=== PATIENT | male | born 1945 | race Caucasian/White ===

== ENCOUNTER 2018-05-05 09:04 | Emergency (ER) | payer OTHER ==
[2018-05-05 09:38] LABS: Absolute Lymphocytes (CBC) 0.9 K/uL (0.7-4.9); Absolute Monocytes 0.5 K/uL (0.1-1.3); Absolute Neutrophil 3.6 K/uL (1.8-8.0); Basophils % 0.9 % (0-1.3); Eosinophils % 4.5 % (0-4.4); Hematocrit 35.1 % (39.6-49.0); Lymphocytes % 16.7 % (15.3-44.8); MCH 32.1 pg (27.0-35.0); MCV 92.2 fL (80-100); MPV 7.5 fL (7.6-11.3); Monocytes % 9.8 % (3.3-12.3)
--- OUTSIDE RECORDS SUMMARY | 2018-05-05 09:45 | XMS REPORT | Clinical Summary ---
:1945 Author Organization [facility] Address [address] [place] [address] Phone Care Team Providers Name Role Phone Unavailable Primary Care Provider Unavailable Allergies No Known Allergies Current Medications Prescription Sig. Disp. Refills Start Date End Date Status cyanocobalamin Inject 1,000 mcg Active (VITAMIN B-12) 1,000 intramuscularly every mcg/mL injection 14 (fourteen) days. losartan (COZAAR) 50 Take 50 mg by mouth Active MG tablet daily. sertraline (ZOLOFT) Take 100 mg by mouth Active 100 MG tablet daily. predniSONE (DELTASONE) Take by mouth daily. Active 10 mg tablet pack Active Problems Not on file Social History Tobacco Use Types Packs/Day Years Used Date Former Smoker 2 4 Smokeless Tobacco: Never Used Comments: QUIT 1973 Alcohol Use Drinks/Week oz/Week Comments Yes 2 Shots of liquor 1.2 Sex Assigned at Date Recorded Not on file Last Filed Vital Signs Not on file Plan of Treatment Not on file Implants Implanted Type Area Senior Education Specialist Device Expiration Model / Identifier Date Serial / Lot Hemostat,[employer] - [id number] Cement/F N/A: [place] 03/12/[id number] / Implanted: Qty: 1 on 09/14/2015 by Brooks Martel MD [employer] / hesive [id number] Results Not on fileafter 05/04/2017
--- NOTE | 2018-05-05 09:46 | RAD REPORT ---
EXAM DESCRIPTION: CT - Head Brain Wo Cont - 05/05/2018 9:38 am CLINICAL HISTORY: Right arm numbness COMPARISON: None. TECHNIQUE: Computed axial tomography of the head was obtained. IV contrast was not requested. All CT scans are performed using dose optimization technique as appropriate and may include automated exposure control or mA/KV adjustment according to patient size. FINDINGS: An intracranial bleed is not seen . The ventricles are normal in caliber. No extra-axial fluid collection is noted. Marked opacification of the ethmoid and frontal sinus is present. IMPRESSION: No acute intracranial abnormality is seen. If patient's symptoms persist MRI of the bra in would be recommended. Marked ethmoid and frontal sinusitis. I suspect it is a combination of acute and chronic.
[2018-05-05 09:50] LABS: Protime INR 1.05
[2018-05-05 10:25] LABS: Urine Blood NEGATIVE (NEG); Urine Glucose NEGATIVE (NEG); Urine Protein NEGATIVE (NEG); Urine Specific Gravity <1.005 (1.005-1.030); Urine pH 5.5 (5.0-7.0)
[2018-05-05] MEDS ORDERED: NA CHLORIDE 0.9% 500 ML ONE (10:39)
--- NOTE | 2018-05-05 11:27 | RAD REPORT ---
EXAM DESCRIPTION: VASCarotid Artery Bilateral05/05/2018 11:11 am CLINICAL HISTORY: Numbness COMPARISON: None FINDINGS: The velocity of the right internal carotid artery equals 84 cm/sec. The right ICA/CCA rati o 0.7 The velocity of the left internal carotid artery equals 87 cm/sec. The left ICA/CCA ratio point Mild plaque is present within the carotid arteries. The vertebral arteries demonstrate antegrade flow IMPRESSION: Mild plaque within the carotid arteries without evidence of a hemodynamically significan t stenosis
--- NOTE | 2018-05-05 12:12 | EKG ---
Test Date: 2018-05-05 Test Time: 09:42:11 [place] Topper: [place] MEASUREMENT RESULTS: Intervals: Rate: 54 TX: 184 QRSD: 100 QT: 430 QTc: 407 [place]: P: 55 TX: 184 QRS: 9 T: 43 INTERPRETIVE STATEMENTS: Sinus bradycardia Otherwise normal ECG No previous ECG available for comparison Electronically Signed On 05-05-18 12:11:41 CDT by Naveed Bethea
--- NOTE | 2018-05-05 12:23 | RAD REPORT ---
EXAM DESCRIPTION: MRI - Brain Wo Cont - 05/05/2018 12:08 pm CLINICAL HISTORY: Stroke-like symptoms, right-sided numbness COMPARISON: CT head same date TECHNIQUE: Sagittal T1-weighted images were obtained along with axial PD, heavily T2-weighted and T2 -FLAIR images. Axial DWI and ADC mapping sequences were also obtained along with coronal heavily T2-w eighted images. FINDINGS: No intracranial hemorrhage, mass or acute infarction. There is no edema or shift of midlin e structures. Slightly greater CSF over the left cerebral convexity is believed to be due to slight d ifferences in volume loss. Brown-matter/white matter junction is preserved. Signal voids are seen as a normal finding in the major intracranial vessels. Patient has little or no chronic ischemic signal i n the white matter. Atrophy changes are mild. Ventricular size is in proportion. No globe or orbital content abnormality. No sella or supra sella abnormality. Mastoid air cells are clear. Extensive mucosal thickening throughout the frontal and ethmoid sinuses. Left maxillary mucosal thickening is present. No air-fluid level. IMPRESSION: No acute infarction change. No hemorrhage, mass or acute intracranial finding. Atrophy changes are mild with little or no chronic ischemic change identifiable. Extensive chronic sinusitis changes in the frontal and ethmoid air cells.
--- NOTE | 2018-05-05 12:59 | ER ---
Nurse's Notes [facility] Name: Carl Richmond Age: 72 yrs Sex: Male : 1945 Arrival Date: 05/05/2018 Time: 09:08 Bed 14 Private MD: Out, [facility] Diagnosis: Paresthesia of skin Presentation: 05/05 09:12 Presenting complaint: Patient states: Right arm numbness with neck discomfort that aj started at 0815 this AM. Patient ambulated with steady gait in NAD. Speech is clear. Transition of care: patient was not received from another setting of care. Onset of symptoms was May 05, 2018 at 08:15. Risk Assessment: Do you want to hurt yourself or someone else? Patient reports no desire to harm self or others. Initial Sepsis Screen: Does the patient meet any 2 criteria? No. Patient's initial sepsis screen is negative. Does the patient have a suspected source of infection? No. Patient's initial sepsis screen is negative. Care prior to arrival: None. 09:12 Method Of Arrival: Ambulatory 09:12 Acuity: BEBETO 3 aj Triage Assessment: 09:13 General: Appears in no apparent distress. comfortable, Behavior is calm, cooperative, aj appropriate for age. Pain: Complains of pain in back of neck. Neuro: Level of Consciousness is awake, alert, obeys commands, Oriented to person, place, time, situation, Appropriate for age. Respiratory: Airway is patent Respiratory effort is even, unlabored, Respiratory pattern is regular, symmetrical. Derm: Skin is intact, is healthy with good turgor, Skin is pink, warm \\T\\ dry. normal. Musculoskeletal: Reports numbness in right elbow, right wrist and palmar aspect of right forearm. Historical: - Allergies: 09:13 No Known Allergies; aj - PMHx: 09:13 Hypertension; Atrial Fib; aj - Immunization history:: Adult Immunizations up to date. - Social history:: Smoking status: Patient/guardian denies using tobacco. - Ebola Screening: : Patient negative for fever greater than or equal to 101.5 degrees Fahrenheit, and additional compatible Ebola Virus Disease symptoms Patient denies exposure to infectious person Patient denies travel to an Ebola-affected area in the 21 days before illness onset No symptoms or risks identified at this time. - Family history:: not pertinent. - Hospitalizations: : No recent hospitalization is reported. Screenin:45 Abuse screen: Denies threats or abuse. Denies injuries from another. Nutritional ss screening: No deficits noted. Tuberculosis screening: Never had TB. Patient has been NPO before screening. The patient is alert, able to follow commands. The patient exhibits slurred or garbled speech. The patient is not exhibiting difficulty speaking. The patient does not exhibit difficulty understanding words. The patient is able to swallow own secretions with no drooling or need for suction. Patient tolerated one teaspoon of water. No drooling, immediate coughing, gurgling, or clearing of the throat was noted. The patient tolerated 90mL of water. No drooling, immediate coughing, gurgling, or clearing of the throat was noted. The patient passed the bedside swallow screening. Oral medications may be given as ordered. Contact Physician for further diet orders. Fall Risk None identified. Assessment: 09:45 General: Pt back from CT, reports numbness in R arm resolved completely on arrival to ER. Pain: Complains of pain in left mid cervical area and left trapezius Pain currently is 7 out of 10 on a pain scale. Quality of pain is described as "twinge" Pain began "a few months ago" Is continuous, Aggravated by turning head side to side. Neuro: Level of Consciousness is awake, alert, obeys commands, Oriented to person, place, time, situation. Neuro: Reports numbness to R arm that began at 0815 today and resolved upon arrival to ER.. Denies blurred vision dizziness, difficulty swallowing, headache photophobia. Cardiovascular: Capillary refill < 3 seconds is brisk in bilateral fingers. Respiratory: Airway is patent Respiratory effort is even, unlabored, Respiratory pattern is regular, symmetrical. GI: Abdomen is non-distended, Patient currently denies diarrhea, nausea, vomiting. : No signs and/or symptoms were reported regarding the genitourinary system. EENT: Nares are clear Oral mucosa is moist. Throat is clear. Derm: Skin is intact, is healthy with good turgor, Skin is dry, Skin is pink, warm \\T\\ dry. normal. Musculoskeletal: Circulation, motion, and sensation intact. Capillary refill < 3 seconds, is brisk, in bilateral fingers. Range of motion: intact in all extremities, Swelling absent Reports pain to L side of neck x months that patient reports has seemed worse since yesterday. 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 10:43 Reassessment: Patient appears in no apparent distress at this time. Patient and/or rb1 family updated on plan of care and expected duration. Pain level reassessed. Patient is alert, oriented x 3, equal unlabored respirations, skin warm/dry/pink. 11:41 Reassessment: Patient appears in no apparent distress at this time. No changes from rb1 previously documented assessment. Pt. went to MRI. 12:39 Reassessment: Patient appears in no apparent distress at this time. Patient and/or rb1 family updated on plan of care and expected duration. Pain level reassessed. Patient is alert, oriented x 3, equal unlabored respirations, skin warm/dry/pink. Pt. went to X-ray. 13:18 Reassessment: Patient appears in no apparent distress at this time. No changes from rb1 previously documented assessment. Discharge pending, pt. is waiting for test results to be put on a CD. Vital Signs: 09:13 BP 189 / 73; Pulse 66; Resp 19; Temp 98.4; Pulse Ox 100% on R/A; Weight 83.91 kg; aj Height 6 ft. 0 in. (182.88 cm) (R); 09:27 Temp 98.0(O); rb1 10:00 BP 140 / 78; Pulse 55; Resp 13; Pulse Ox 99% on R/A; rb1 11:00 BP 150 / 79; Pulse 54; Resp 21 S; Pulse Ox 98% on R/A; rb1 11:30 BP 125 / 85; Pulse 51; Resp 20; Pulse Ox 98% on R/A; rb1 12:30 BP 132 / 79; Pulse 53; Resp 19; Pulse Ox 99% on R/A; rb1 13:18 BP 133 / 82; Pulse 56; Resp 19; Pulse Ox 99% on R/A; rb1 09:13 Body Mass Index 25.09 (83.91 kg, 182.88 cm) aj NIH Stroke Scale Scores: 09:45 NIHSS Score: 0 ss ED Course: 09:08 Patient arrived in ED. sb2 09:09 Out, [facility] is Private Physician. sb2 09:11 Tylor Mcclellan MD is Attending Physician. rn 09:13 Triage completed. aj 09:13 Arm band placed on right wrist. Patient placed in an exam room. aj 09:15 Patient Physician notified of patient complaint, nurse requested immediate evaluation. aj 09:[address] sw 09:36 CT completed. Patient tolerated procedure well. Patient moved back from CT. sw 09:36 Troponin (emerg Dept Use Only) Sent. ag 09:36 Basic Metabolic Panel Sent. ag 09:36 CBC with Diff Sent. ag 09:36 Ptt, Activated Sent. ag 09:37 CT Head Brain wo Cont In Process Unspecified. EDMS 09:37 Inserted saline lock: 20 gauge in left antecubital area, using aseptic technique. Blood ag collected. 09:40 Nae Mckoy RN is Primary Nurse. ss 09:45 Patient has correct armband on for positive identification. Bed in low position. Call ss light in reach. Side rails up X2. environmental monitoring technician on. Pulse ox on. NIBP on. 09:45 Patient maintains SpO2 saturation greater than 95% on room air. ss 09:57 EKG done, by artificial breeding technician. reviewed by Tylor Mcclellan MD. at1 11:11 Carotid Artery Bilateral US In Process Unspecified. EDMS 11:11 Ultrasound completed. Patient tolerated well. aa4 11:57 Patient moved to MRI via wheelchair. lc 12:01 MRI - Brain Wo Cont In Process Unspecified. EDMS 12:22 MRI completed. Patient tolerated well. Patient moved back from MRI. em2 12:49 X-ray completed. Patient tolerated procedure well. Patient moved back from radiology. jb2 12:50 XRAY C Spine Ap/lat In Process Unspecified. EDMS 13:30 No provider procedures requiring assistance completed. IV discontinued, intact, rb1 bleeding controlled, No redness/swelling at site. Pressure dressing applied. Administered Medications: 10:38 Drug: NS 0.9% 500 ml Route: IV; Rate: bolus; Site: left antecubital; rb1 11:15 Follow up: IV Status: Completed infusion rb1 Point of Care Testing: Blood Glucose: 09:44 Blood Glucose: 111 mg/dL; ss Ranges: Outcome: 12:58 Discharge ordered by . rn 13:30 Patient left the ED. rb1 13:30 Discharged to home ambulatory. rb1 13:30 Condition: stable 13:30 Discharge instructions given to patient, Instructed on discharge instructions, follow up and referral plans. Demonstrated understanding of instructions, follow-up care, Prescriptions given X none NIH Stroke Scale - NIH Stroke Score Date: 05/05/2018 Time: 09:45 Total Score = 0 1a. Level of Consciousness (LOC) - 0(Alert) 1b. Level of Consciousness (LOC) (Year \\T\\ Age) - 0(Both) 1c. LOC Commands (Open \\T\\ Closes Eyes/Right Of Way Agent) - 0(Both) 2. Best Gaze (Lateral Gaze Paresis) - 0(Normal) 3. Visual Field Loss - 0(No visual loss) 4. Facial Palsy - 0(Normal) 5a. Left Arm: Motor (10-second hold) - 0(No drift) 5b. Right Arm: Motor (10-second hold) - 0(No drift) 6a. Left Leg: Motor (5-second hold - always test supine) - 0(No drift) 6b. Right Leg: Motor (5-second hold - always test supine) - 0(No drift) 7. Limb Ataxia (finger/nose \\T\\ heel/[place] - test with eyes open) - 0(Absent) 8. Sensory Loss (pinprick arms/legs/face) - 0(Normal) 9. Best Language: Aphasia (description/naming/reading) - 0(No aphasia) 10. Dysarthria (speech clarity - read or repeat words) - 0(Normal) 11. Extinction and Inattention (visual/tactile/auditory/spatial/personal) - 0(No abnormality) Initials: Signatures: Dispatcher [employer] EDNC Allison Sahu RN RN aj Buechter, Jesse jb2 Lois Tobar Amanda aa4 Tylor Mcclellan MD MD rn Smirch, Shelby, RN RN ss Montes, Enrique em2 Allison mosquera, c java developer EKG Tat1 Yajaira Anderson Shannon sw Barber, Rebecca, RN RN rb1 Karmen Huff2 Corrections: (The following items were deleted from the chart) 09:37 09:37 Inserted saline lock: 20 gauge in left antecubital area, using aseptic ag technique. ag 11:42 11:41 Reassessment: Pt. went to MRI rb1 rb1 13:38 13:36 Patient left the ED. rb1 rb1
--- NOTE | 2018-05-05 12:59 | EDPHYS ---
Physician Documentation [facility] Name: Carl Richmond Age: 72 yrs Sex: Male : 1945 Arrival Date: 05/05/2018 Time: 09:08 Bed 14 Private MD: Out, [facility] ED Physician Tylor Mcclellan HPI: 05/05 10:21 This 72 yrs old Male presents to ER via Ambulatory with complaints of rn Numbness Of Arm. 10:21 The patient's problem is reported as paresthesias. Onset: The symptoms/episode rn began/occurred at 08:15. Duration: This was a single incident. Context: symptoms became apparent. Severity of symptoms: At their worst the symptoms were mild in the emergency department the symptoms have resolved. The patient has not experienced similar symptoms in the past. Reports at work, walking, noticed right hand fell asleep, no leg involvement, no headache, no chest pain/sob. Lasted approx 2 hours, now resolved. Denies weakness.. 10:21 Reports has been having neck pain for 1 month. . rn Historical: - Allergies: 09:13 No Known Allergies; aj - PMHx: 09:13 Hypertension; Atrial Fib; aj - Immunization history:: Adult Immunizations up to date. - Social history:: Smoking status: Patient/guardian denies using tobacco. - Ebola Screening: : Patient negative for fever greater than or equal to 101.5 degrees Fahrenheit, and additional compatible Ebola Virus Disease symptoms Patient denies exposure to infectious person Patient denies travel to an Ebola-affected area in the 21 days before illness onset No symptoms or risks identified at this time. - Family history:: not pertinent. - Hospitalizations: : No recent hospitalization is reported. ROS: 10:21 Constitutional: Negative for fever, chills, and weight loss, Eyes: Negative for injury, rn pain, redness, and discharge, Neck: + neck pain Cardiovascular: Negative for chest pain, palpitations, and edema, Respiratory: Negative for shortness of breath, cough, wheezing, and pleuritic chest pain, Abdomen/GI: Negative for abdominal pain, nausea, vomiting, diarrhea, and constipation, MS/Extremity: Negative for injury and deformity, Skin: Negative for injury, rash, and discoloration, Neuro: Negative for headache, weakness, and seizure. Exam: 10:21 Radiologist reports: No acute findings rn 10:21 Constitutional: This is a well developed, well nourished patient who is awake, alert, and in no acute distress. Head/Face: Normocephalic, atraumatic. Eyes: Pupils equal round and reactive to light, extra-ocular motions intact. Lids and lashes normal. Conjunctiva and sclera are non-icteric and not injected. Cornea within normal limits. Periorbital areas with no swelling, redness, or edema. Neck: Trachea midline, no thyromegaly or masses palpated, and no cervical lymphadenopathy. Supple, full range of motion without nuchal rigidity, or vertebral point tenderness. No Meningismus. Cardiovascular: Regular rate and rhythm with a normal S1 and S2. No gallops, murmurs, or rubs. Normal PMI, no JVD. No pulse deficits. Respiratory: Lungs have equal breath sounds bilaterally, clear to auscultation and percussion. No rales, rhonchi or wheezes noted. No increased work of breathing, no retractions or nasal flaring. Abdomen/GI: Soft, non-tender, with normal bowel sounds. No distension or tympany. No guarding or rebound. No evidence of tenderness throughout. MS/ Extremity: Pulses equal, no cyanosis. Neurovascular intact. Full, normal range of motion. Equal circumference. Neuro: Awake and alert, GCS 15, oriented to person, place, time, and situation. Cranial nerves II-XII grossly intact. Motor strength 5/5 in all extremities. Sensory grossly intact. Cerebellar exam normal. Normal gait. Vital Signs: 09:13 BP 189 / 73; Pulse 66; Resp 19; Temp 98.4; Pulse Ox 100% on R/A; Weight 83.91 kg; aj Height 6 ft. 0 in. (182.88 cm) (R); 09:27 Temp 98.0(O); rb1 10:00 BP 140 / 78; Pulse 55; Resp 13; Pulse Ox 99% on R/A; rb1 11:00 BP 150 / 79; Pulse 54; Resp 21 S; Pulse Ox 98% on R/A; rb1 11:30 BP 125 / 85; Pulse 51; Resp 20; Pulse Ox 98% on R/A; rb1 12:30 BP 132 / 79; Pulse 53; Resp 19; Pulse Ox 99% on R/A; rb1 13:18 BP 133 / 82; Pulse 56; Resp 19; Pulse Ox 99% on R/A; rb1 09:13 Body Mass Index 25.09 (83.91 kg, 182.88 cm) aj NIH Stroke Scale Scores: 09:45 NIHSS Score: 0 ss MDM: 09:11 Patient medically screened. rn 09:19 ED course: Paresthesias that began at 0815 today, now resolved, reports paresthesias of rn right hand, not entire arm, has been having neck pain for a month. Asymptomatic currently, no TPA indicated. . ED course: NIH 0 currently.. 12:31 Differential diagnosis: CVA, TIA, metabolic disorder, electrolyte disorder. Data rn reviewed: vital signs, nurses notes, lab test result(s), EKG, radiologic studies, CT scan, doppler, MRI, and as a result, I will discharge patient. Counseling: I had a detailed discussion with the patient and/or guardian regarding: the historical points, exam findings, and any diagnostic results supporting the discharge/admit diagnosis, lab results, radiology results, the need for outpatient follow up, to return to the emergency department if symptoms worsen or persist or if there are any questions or concerns that arise at home. Response to treatment: the patient's condition has returned to base line, and as a result, I will discharge patient. Special discussion: I discussed with the patient/guardian in detail that at this point there is no indication for admission to the hospital. It is understood, however, that if the symptoms persist or worsen the patient needs to return immediately for re-evaluation. Based on the history and exam findings, there is no indication for further emergent testing or inpatient evaluation. I discussed with the patient/guardian the need to see the neurologist for further evaluation of the symptoms. ED course: Pt at baseline, unclear etiology of symptoms, mild plaquing of carotid, neg MRI, neg CT, will dc home with recommendation to take daily aspirin and f/u with neuro.. 05/05 09:19 Order name: Troponin (emerg Dept Use Only); Complete Time: 10:08 rn 05/05 09:19 Order name: Basic Metabolic Panel; Complete Time: 10:08 rn 05/05 09:19 Order name: CBC with Diff; Complete Time: 09:55 rn 05/05 09:19 Order name: Protime (+inr); Complete Time: 10: rn 05/05 09:19 Order name: Ptt, Activated; Complete Time: 10:08 rn 05/05 10:00 Order name: Urine Dipstick--Ancillary (enter results); Complete Time: 10:32 bd 05/05 09:19 Order name: EKG; Complete Time: 09:19 rn 05/05 09:19 Order name: Accucheck; Complete Time: 09:46 rn 05/05 09:19 Order name: Cardiac monitoring; Complete Time: 09:36 rn 05/05 09:19 Order name: CT Head Brain wo Cont; Complete Time: 09:55 rn 05/05 10:09 Order name: MRI - Brain Wo Cont; Complete Time: 12:30 rn 05/05 10:44 Order name: XRAY C Spine Ap/lat; Complete Time: 13:09 rn 05/05 10:44 Order name: Carotid Artery Bilateral US; Complete Time: 12:30 rn 05/05 09:19 Order name: EKG - Nurse/Tech; Complete Time: 09:46 rn 05/05 09:19 Order name: IV Saline Lock; Complete Time: 09:35 rn 05/05 09:19 Order name: Labs collected and sent; Complete Time: 09:35 rn 05/05 09:19 Order name: NPO; Complete Time: 09:46 rn 05/05 09:19 Order name: O2 Per Protocol; Complete Time: 09:36 rn 05/05 09:19 Order name: O2 Sat Monitoring; Complete Time: 09:36 rn Administered Medications: 10:38 Drug: NS 0.9% 500 ml Route: IV; Rate: bolus; Site: left antecubital; rb1 11:15 Follow up: IV Status: Completed infusion rb1 Point of Care Testing: Blood Glucose: 09:44 Blood Glucose: 111 mg/dL; ss Ranges: Critical Glucose Levels:Adult <50 mg/dl or >400 mg/dl <40 mg/dl or >180 mg/dl Disposition: 05/05/18 12:58 Discharged to Home. Impression: Paresthesia of skin. - Condition is Stable. - Discharge Instructions: Paresthesia. - Medication Reconciliation Form, Thank You Letter, Antibiotic Education, Prescription Opioid Use, Work release form form. - Follow up: Private Physician; When: As needed; Reason: Recheck today's complaints, Re-evaluation by your physician. - Problem is new. - Symptoms have improved. NIH Stroke Scale - NIH Stroke Score Date: 05/05/2018 Time: 09:45 Total Score = 0 1a. Level of Consciousness (LOC) - 0(Alert) 1b. Level of Consciousness (LOC) (Year \T\ Age) - 0(Both) 1c. LOC Commands (Open \T\ Closes Eyes/Engraver Block) - 0(Both) 2. Best Gaze (Lateral Gaze Paresis) - 0(Normal) 3. Visual Field Loss - 0(No visual loss) 4. Facial Palsy - 0(Normal) 5a. Left Arm: Motor (10-second hold) - 0(No drift) 5b. Right Arm: Motor (10-second hold) - 0(No drift) 6a. Left Leg: Motor (5-second hold - always test supine) - 0(No drift) 6b. Right Leg: Motor (5-second hold - always test supine) - 0(No drift) 7. Limb Ataxia (finger/nose \T\ heel/[place] - test with eyes open) - 0(Absent) 8. Sensory Loss (pinprick arms/legs/face) - 0(Normal) 9. Best Language: Aphasia (description/naming/reading) - 0(No aphasia) 10. Dysarthria (speech clarity - read or repeat words) - 0(Normal) 11. Extinction and Inattention (visual/tactile/auditory/spatial/personal) - 0(No abnormality) Initials: ss Signatures: Dispatcher [employer] Allison Reza RN RN aj Nieto, Roman, MD MD rn Barber, Rebecca, RN RN rb1 Corrections: (The following items were deleted from the chart) 13:36 12:58 05/05/2018 12:58 Discharged to Home. Impression: Paresthesia of skin. rb1 Condition is Stable. Forms are Medication Reconciliation Form, Thank You Letter, Antibiotic Education, Prescription Opioid Use. Follow up: Private Physician; When: As needed; Reason: Recheck today's complaints, Re-evaluation by your physician. Problem is new. Symptoms have improved. rn
--- NOTE | 2018-05-05 13:07 | RAD REPORT ---
EXAM DESCRIPTION: RAD - C Spine Ap/Lat - 05/05/2018 12:58 pm CLINICAL HISTORY: Right arm numbness FINDINGS: The alignment of the cervical spine is satisfactory. No fracture or dislocation is seen. The bones are osteoporotic. Mild spondylosis involves the distal cervical spine
== END 2018-05-05 13:36 | disposition home or self-care (01) ==
LOC: ER 09:04
DX: R20.2 Paresthesia of skin (principal); I10 Essential (primary) hypertension
CPT/HCPCS: 36415; 70450; 70551; 72040; 80048; 81003; 82962; 84484; 85025; 85610; 85730; 93005; 93880; 96360; 99285